=== PATIENT | male | born 1940 | race Caucasian/White ===

== ENCOUNTER 2022-03-16 03:38 | Emergency (ER) | payer OTHER ==
[~2022-03-16] VITALS: Ht 165.1 cm; Wt 55.3 kg
[2022-03-16 03:43] VITALS: BP_SYST 150
--- NOTE | 2022-03-16 03:55 | NUR ---
RECEIVED PT C/O LOWER ABD PAIN X2 DAYS, DENIES N/V/D, DENIES DYSURIA. STATES THAT HE HAS HX OF GALLSTONES
--- NOTE | 2022-03-16 04:17 | NUR ---
PT DRIVEN TO ER BY DAUGHTER WITH COMPLAINT OF LOWER ABDOMINAL PAIN. PT HAS HX OF GALLSTONE DX IN NOVEMBER. PT DENIES ANY CHEST PAIN. PT IS IN BED WITH BED LOWERED, LOCKED AND RIALS UP. VS ARE WITHIN NORMAL LIMITS
[2022-03-16] MEDS ORDERED: MORPHINE 4 MG INJ. 4 MG/ML VIAL IVP ONE (06:00)
[2022-03-16] MEDS ORDERED: NACL 0.9% 1,000 ML IV ONE (06:00)
[2022-03-16 06:08] LABS: BILIRUBIN,URINE NEGATIVE (NEGATIVE); BLOOD, URINE NEGATIVE (NEGATIVE); CLARITY/URINE CLEAR (CLEAR); COLOR,URINE YELLOW (YELLOW); GLUCOSE,URINE NEGATIVE (NEGATIVE); KETONES,URINE NEGATIVE (NEGATIVE); LEUKOCYTE ESTERASE ,URINE NEGATIVE (NEGATIVE); NITRITE, URINE NEGATIVE (NEGATIVE); PH,URINE 6.5 (5.0-8.0); PROTEIN URINE NEGATIVE (NEGATIVE); UROBILINOGEN,URINE 0.2 (0.2-1.0)
[2022-03-16] MEDS ORDERED: KETOROLAC TROMETHAMINE 30 MG VIAL IVP ONE (06:15)
[2022-03-16] MEDS ORDERED: MORPHINE 2 MG/ML INJ. SYRINGE ONE (06:22)
[2022-03-16 06:23] LABS: BASOPHILS # (AUTO) 0.1 K/uL (0.0-0.2); BASOPHILS % (AUTO) 1.5 % (0.0-2.0); EOSINOPHILS % (AUTO) 0.3 % (0.0-4.0); HEMATOCRIT 36.9 % (36-54); HEMOGLOBIN 13.2 g/dL (14.0-18.0); LYMPHOCYTES % (AUTO) 19.1 % (20.5-51.5); MEAN CORPUSCULAR HEMOGLOBIN 32 pg (27-31); MEAN CORPUSCULAR HGB CONC 36 % (32-36); MEAN CORPUSCULAR VOLUME 88 fL (79.0-98.0); MONOCYTES # (AUTO) 0.3 K/uL (0.0-1.0); MONOCYTES % (AUTO) 5.7 % (1.7-9.3); NEUTROPHILS # (AUTO) 3.8 K/uL (1.8-7.7); NEUTROPHILS % (AUTO) 73.4 % (40.0-70.0); PLATELET COUNT (AUTO) 223 K/uL (130-430); RED CELL DISTRIBUTION WIDTH 13.2 % (9.0-15.0); WHITE BLOOD COUNT (AUTO) 5.1 K/uL (4.8-10.8)
[2022-03-16 06:35] LABS: ANION GAP 6 (5-15); CALCIUM 8.5 mg/dL (8.4-11.0); CHLORIDE 98 mmol/L (98-107); CREATININE 1.01 mg/dL (0.55-1.30); GLUCOSE 130 mg/dL (70-99); POTASSIUM 4.2 mmol/L (3.5-5.1); SODIUM SERUM 132 mmol/L (136-145); UREA NITROGEN, BLOOD 14 mg/dL (8-21)
[2022-03-16 06:40] LABS: ALANINE AMINOTRANSFERASE 11 U/L (12-78); ALBUMIN 3.7 g/dL (3.4-4.8); ASPARTATE AMINOTRANSFERASE 19 U/L (10-37); LIPASE 215 U/L (73-393); TOTAL BILIRUBIN 0.5 mg/dL (0.0-1.0)
--- NOTE | 2022-03-16 07:21 | NUR ---
GAVE RPRT TO MAUREEN
--- NOTE | 2022-03-16 07:43 | NUR ---
Recieved pt from GUDELIA Marquez. Pt is aaox4, denies N/V, 5/10 pain. 20 g RAC intact. VSS. 146/75 bp 73 HR 96% o2 room air. Pt is resting HOB up bed down rails up.
--- NOTE | 2022-03-16 08:00 | NUR ---
MD Barnes BS with pt.
--- NOTE | 2022-03-16 08:45 | NUR ---
Pt ambulates steadily to Rest room. Pt refuses continuance of NS; 500ml complete of 1000ml. Pt states ready to go home to rest.
[2022-03-16] MEDS ORDERED: ACET-2634 PO (08:58)
[2022-03-16 09:13] VITALS: BP_SYST 149
--- NOTE | 2022-03-16 09:15 | NUR ---
Patient given written and verbal discharge instructions and verbalizes understanding. ER MD Barnes discussed with patient the results and treatment provided. Patient in stable condition. ID arm band removed. IV catheter removed intact and dressing applied, no active bleeding. Rx of Tylenol given. Patient educated on pain management and to follow up with PMD. Opportunity for questions provided and answered. Medication side effect fact sheet provided.
== END 2022-03-16 09:15 | disposition home or self-care (01) ==
LOC: SED 03:38
DX: R10.32 Left lower quadrant pain (principal); R10.31 Right lower quadrant pain; R11.0 Nausea; Z79.899 Other long term (current) drug therapy
CPT/HCPCS: 36415; 74176; 76376; 80053; 81003; 83690; 85025; 96361; 96374; 99284; J2270; J7030